=== PATIENT | female | born 1985 | race Asian ===

== ENCOUNTER 2020-11-29 10:54 | Inpatient (IN) ==
[2020-11-29] MEDS ORDERED: Penicillin G Potassium IV 5,000,000 UNITS in NS 0.9% 100 ml BAG 100 ML IVPB ONE (12:27)
[2020-11-29] MEDS ORDERED: Buffered Lidocaine 1% SYRIN 1 ml INTRADERM ONE (12:27)
[2020-11-29] MEDS ORDERED: Lactated Ringers 1000 ml BAG 1,000 ML IV ONE ×2 (12:27→15:59)
[2020-11-29] MEDS ORDERED: Lactated Ringers 1000 ml BAG 1,000 ML IV SCH ×3 (13:00→20:00)
[2020-11-29 13:09] LABS: ABS Basophils 0.1 10^3/ul (0-0.2); ABS Eosinophils 0.1 10^3/ul (0-0.6); ABS Lymphocytes 1.3 10^3/ul (1.0-4.8); ABS Monocytes 1.2 10^3/ul (0-0.8); ABS Neutrophils 8.9 10^3/ul (1.5-7.7); Eosinophil % 0.5 %; Hematocrit 36 % (35-47); Hemoglobin 11.7 g/dL (12.0-16.0); Lymphocyte % 11.2 %; Mean Corpuscular HGB Conc 33 g/dL (31-36); Mean Corpuscular Hemoglobin 27 pg (27-31); Mean Corpuscular Volume 83 fL (80-97); Platelet Count 214 10^3/uL (150-450); Red Blood Count 4.31 10^6 /uL (3.70-4.87); Red Cell Distribution Width 15 % (10-15); White Blood Count 11.5 10^3/uL (3.5-10.8)
[2020-11-29] MEDS ORDERED: OBEPIDURAL 250 ML EPIDURAL ONE (13:58)
[2020-11-29 14:23] LABS: Urine Benzodiazepine Screen None Detected (None Detect); Urine Cannabinoids Screen None Detected (None Detect); Urine Opiates Screen None Detected (None Detect)
[2020-11-29] MEDS ORDERED: Sodium Citrate/Citric Acid LIQ 15 ML UDC PO PRN (15:59)
[2020-11-29] MEDS ORDERED: Phenylephrine 40 mcg/mL 10mL (400mcg) SYRINGE IV PUSH PRN ×2 (15:59)
[2020-11-29] MEDS ORDERED: Lactated Ringers 1000 ml BAG 500 ML IV PRN ×2 (15:59)
[2020-11-29] MEDS ORDERED: OBEPIDURAL 250 ML EPIDURAL SCH (16:00)
[2020-11-29 16:13] LABS: Urine Appearance Cloudy; Urine Bacteria 1+ (Absent); Urine Bilirubin Negative (Negative); Urine Blood 2+ (Negative); Urine Color Yellow; Urine Glucose 1+(50 mg/dL) (Negative); Urine Ketones Trace (Negative); Urine Nitrite Negative (Negative); Urine Protein Negative (Negative); Urine Red Blood Cell 3+(>10/hpf) (Absent); Urine Specific Gravity 1.029 (1.002-1.030); Urine Squamous Epithelial Cell Present (Absent); Urine Urobilinogen Negative (Negative); Urine White Blood Cell 1+(6-10/hpf) (Absent)
[2020-11-29] MEDS ORDERED: Penicillin G Potassium IV 3,000,000 UNITS in NS 0.9% 100 ml BAG 100 ML IVPB SCH (17:00)
[2020-11-29] MEDS ORDERED: Oxytocin in LR 20 UNITS/1,000 ML BAG IVPB ONE (17:17)
[2020-11-29] MEDS ORDERED: Glycerin ADULT 2.4 gm SUPP PR PRN (19:06)
[2020-11-29] MEDS ORDERED: Witch Hazel PAD JAR TOPICAL PRN (19:06)
[2020-11-29] MEDS ORDERED: Oxytocin in LR 20 UNITS/1,000 ML BAG IVPB SCH (20:00)
[2020-11-29] MEDS: Dibucaine 1% OINT 28.35 GM TUBE PR PRN (20:18)
[2020-11-29] MEDS ORDERED: Lidocaine 1% VIAL 10 MG/ML VIAL ONE (22:34)
[2020-11-30 08:38] LABS: ABS Eosinophils 0.1 10^3/ul (0-0.6); ABS Lymphocytes 1.6 10^3/ul (1.0-4.8); ABS Monocytes 1.2 10^3/ul (0-0.8); ABS Neutrophils 9.5 10^3/ul (1.5-7.7); Eosinophil % 0.5 %; Hematocrit 30 % (35-47); Hemoglobin 10.1 g/dL (12.0-16.0); Lymphocyte % 12.7 %; Mean Corpuscular HGB Conc 33 g/dL (31-36); Mean Corpuscular Hemoglobin 27 pg (27-31); Mean Corpuscular Volume 82 fL (80-97); Mean Platelet Volume 8.9 fL (7.4-10.4); Platelet Count 173 10^3/uL (150-450); Red Blood Count 3.67 10^6 /uL (3.70-4.87); Red Cell Distribution Width 15 % (10-15); White Blood Count 12.3 10^3/uL (3.5-10.8)
[2020-11-30] MEDS: Dibucaine 1% OINT 28.35 GM TUBE PR PRN (16:27)
[2020-12-01 08:52] VITALS: BP 107/65
== END 2020-12-01 19:02 | disposition home or self-care (01) | DRG 807 ==
LOC: MCHOBOUT 10:54 → MCHOB 12:19
PROVIDERS: ADMIT Midwife; ATTEND Midwife